=== PATIENT | female | born 2000 | race Caucasian/White ===

== ENCOUNTER → 2022-09-12 | Outpatient (CLI) | payer OTHER ==
--- NOTE | 2022-09-12 11:29 | US ---
EXAMINATION TYPE: Transabdominal DATE OF EXAM: 09/12/2022 11:07 AM COMPARISON: NONE CLINICAL HISTORY: O26.851 SPOTTING COMPLICATED . Bleeding. . EXAM PERFORMED: Transvaginal (TV) and Transabdominal (TA) EXAM MEASUREMENTS: GESTATIONAL AGE / DATING Physician Established: (11 weeks/5 days) EDC: 03/29/2023 Dates by LMP: (12 weeks/1 day) EDC: 03/26/2023 Dates by First Scan: This is first scan Dates by Current Scan for: (9 weeks/2 days by gestational sac, 6 weeks/ 5 days by possible CRL, no he art tones seen at this time.) MATERNAL ANATOMY Uterus: 8.7 x 6.2 x 6.5 cm. Anteverted. Fluid seen in cervix: 1.7 x 0.7 x 0.2 cm. Right Ovary: 3.7 x 2.2 x 2.1 cm. Complex area seen: 2.2 x 1.9 x 1.9 cm. Left Ovary: 2.8 x 1.7 x 1.6 cm. Appears wnl Post CDS / Adnexa: Appears wnl. Presence of free fluid: No Presence of corpus luteal cyst: Possible within right ovary, complex area seen: 2.2 x 1.9 x 1.9 cm. Presence of subchorionic bleed: Yes: 1.1 x 1.6 x 0.5 cm. GESTATION / SURVEY CRL: Possible pole seen without heart tones (6 weeks/5 days) MSD: 3.67 cm (9 weeks/2 days) Yolk Sac (normal less than 6mm): Not seen Heart Rate: Not detected IUP: Possible pole seen without heart tones seen. Date of LMP: 06/19/2022 IMPRESSION: 1. Discrepancy between dating by crown-rump length, mean sac diameter, and last menstrual period. No heart tones are identified. Intrauterine demise. 2. Subchorionic hemorrhage.
== END | disposition home or self-care (01) ==
LOC: RADUSWWP 10:12
PROVIDERS: ATTEND Obstetrics & Gynecology
DX: O26.851 Spotting complicating pregnancy, first trimester (principal); O20.8 Other hemorrhage in early pregnancy; Z3A.09 9 weeks gestation of pregnancy
CPT/HCPCS: 76801; 76817

== ENCOUNTER 2022-10-13 05:43 | Emergency (ER) | payer OTHER ==
[2022-10-13 05:56] VITALS: TEMP 98
--- NOTE | 2022-10-13 06:25 | ED ---
Female Urogenital HPI - General Chief complaint: Vaginal Bleeding Stated complaint: Vaginal Bleeding Time Seen by Provider: 10/13/22 06:01 Source: patient, RN notes reviewed Mode of arrival: ambulatory Limitations: no limitations - History of Present Illness Initial comments: 22-year-old female presents emergency Department chief complaint of ongoing vag inal bleeding. Patient states that she was diagnosed with a miscarriage on 2and ultrasound. Patient's FISHING BOAT MATE is Dr. Gallego. Patient states that she initially had her follow-up appointment in which she was having bleeding was told that should subside and she would have a period within 40 to weeks. Patient states that she's never stopped bleeding she states she is still going to 5-6 pads a day states that she still passing some clots signs of a time. Patient states she is lightheaded when she stands up she states she has no syncopal episodes and states that she didn't have a syncopal episode just before [place]. Patient states she has mild lower abdominal cramping. Patient denies any chest pain shortness of breath. Last Menstrual Period: 06/19/22 - Related Data Home Medications Medication Instructions Recorded Confirmed Ondansetron Odt [Zofran Odt] 4 mg PO TID PRN 10/13/22 10/13/22 Allergies Allergy/AdvReac Type Severity Reaction Status Date / Time Sulfa (Sulfonamide Allergy Rash/Hives Verified 10/13/22 07:49 Antibiotics) sulfamethoxazole Allergy Rash/Hives Verified 10/13/22 07:49 [From Bactrim] trimethoprim [From Bactrim] Allergy Rash/Hives Verified 10/13/22 07:49 Review of Systems ROS Statement: Those systems with pertinent positive or pertinent negative responses have been documented in the HPI. ROS Other: All systems not noted in ROS Statement are negative. Past Medical History Past Medical History: No Reported History History of Any Multi-Drug Resistant Organisms: None Reported Past Surgical History: No Surgical Hx Reported Past Psychological History: No Psychological Hx Reported General Exam General appearance: alert, in no apparent distress Head exam: Present: atraumatic, normocephalic, normal inspection Neck exam: Present: normal inspection. Absent: tenderness, meningismus, lymphadenopathy Respiratory exam: Present: normal lung sounds bilaterally. Absent: respiratory distress, wheezes, rales, rhonchi, stridor Cardiovascular Exam: Present: regular rate, normal rhythm, normal heart sounds. Absent: systolic murmur, diastolic murmur, rubs, gallop, clicks GI/Abdominal exam: Present: soft, normal bowel sounds. Absent: distended, tenderness, guarding, rebound, rigid Neurological exam: Present: alert Skin exam: Present: warm, dry, intact, normal color. Absent: rash Course Vital Signs 10/13/22 10/13/22 10/13/22 05:48 06:12 06:20 Temperature 98 F Pulse Rate 74 Pulse Rate [ 66 59 L Construction Secretary ] Respiratory 18 Rate Blood Pressure 102/65 Blood Pressure 98/59 98/59 [Right Arm Sitting] Blood Pressure [Right Arm Standing] Blood Pressure 104/48 [Right Arm Supine] O2 Sat by Pulse 98 99 Oximetry 10/13/22 06:21 Temperature Pulse Rate Pulse Rate [ 90 Construction Secretary ] Respiratory Rate Blood Pressure Blood Pressure [Right Arm Sitting] Blood Pressure 100/63 [Right Arm Standing] Blood Pressure [Right Arm Supine] O2 Sat by Pulse 99 Oximetry Medical Decision Making - Medical Decision Making Was pt. sent in by a medical professional or institution? @ -no Did you speak to anyone other than the patient for history? @ -no Did you review nursing and triage notes? @ -Agree and reviewed Were old charts reviewed? @ -Reviewed ultrasound from 09-12-22 Differential Diagnosis? @ -Dysfunctional uterine bleeding, miscarriage, retained products, menorrhagia, EKG interpreted by me (3pts min.)? @ -no X-rays interpreted by me (1pt min.)? @ -no CT interpreted by me (1pt min.)? @ -no U/S interpreted by me (1pt. min.)? @ -Ultrasound transvaginal shows thickened endometrium, possible retained the products What testing was considered but not performed? (CT, X-rays, U/S, labs)? Why? @ none What meds were considered but not given? Why? @ -no Did you discuss the management of the patient with other professionals? @ -FISHING BOAT MATE Dr. Rico who came and evaluated the patient Did you reconcile home meds? @ -no Was smoking cessation discussed for >3mins.? @ -no Was critical care preformed (if so, how long)? @ -no Were there social determinants of health that impacted care today? How? (Homelessness, low income, unemployed, alcoholism, drug addiction, transportation, low edu. Level, literacy, decrease access to med. care, long term, rehab)? @ -no Was there de-escalation of care discussed even if they declined? (Discuss DNR or withdrawal of care, Hospice)? @ -no What co-morbidities impacted this encounter? (DM, HTN, Smoking, COPD, CAD, Cancer, CVA, Hep., AIDS, mental health diagnosis, sleep apnea, morbid obesity)? @ -no Was patient admitted / discharged? @ -Discharged with follow up outpatient Undiagnosed new problem with uncertain prognosis? @ -no Drug Therapy requiring intensive monitoring for toxicity (Heparin, Nitro, I nsulin, Cardizem)? @ -no Were any procedures done? @ -no Diagnosis/symptom? @ -Menorrhagia Acute, or Chronic, or Acute on Chronic? @ -acute Uncomplicated (without systemic symptoms) or Complicated (systemic symptoms)? @ -Uncomplicated Side effects of treatment? @ -no Exacerbation, Progression, or Severe Exacerbation] @ -no Poses a threat to life or bodily function? @ -no 21-year-old female presented for vaginal bleeding after miscarriage. Patient's been having ongoing bleeding for one month. Patient was evaluated emergency department by patient's beta Quant is less than 2.4. This is felt to be related to heavy vaginal bleeding and not retained products. Patient is to follow up outpatient. - Lab Data Result diagrams: 10/13/22 06:09 10/13/22 06:09 Lab Results 10/13/22 10/13/22 10/13/22 Range/Units 06:00 06:05 06:09 WBC 5.9 (3.8-10.6) k/uL RBC 4.39 (3.80-5.40) m/uL Hgb 13.9 (11.4-16.0) gm/dL Hct 41.2 (34.0-46.0) % MCV 93.7 (80.0-100.0) fL MCH 31.5 (25.0-35.0) pg MCHC 33.7 (31.0-37.0) g/dL RDW 11.9 (11.5-15.5) % Plt Count 230 (150-450) k/uL MPV 8.2 Neutrophils % 61 % Lymphocytes % 28 % Monocytes % 6 % Eosinophils % 2 % Basophils % 0 % Neutrophils # 3.6 (1.3-7.7) k/uL Lymphocytes # 1.7 (1.0-4.8) k/uL Monocytes # 0.3 (0-1.0) k/uL Eosinophils # 0.1 (0-0.7) k/uL Basophils # 0.0 (0-0.2) k/uL Sodium (137-145) mmol/L Potassium (3.5-5.1) mmol/L Chloride (98-107) mmol/L Carbon Dioxide (22-30) mmol/L Anion Gap mmol/L BUN (7-17) mg/dL Creatinine (0.52-1.04) mg/dL Est GFR (CKD-EPI)AfAm (>60 ml/min/1.73 sqM) Est GFR (CKD-EPI)NonAf (>60 ml/min/1.73 sqM) Glucose (74-99) mg/dL Calcium (8.4-10.2) mg/dL Total Bilirubin (0.2-1.3) mg/dL AST (14-36) U/L ALT (4-34) U/L Alkaline Phosphatase (38-126) U/L Total Protein (6.3-8.2) g/dL Albumin (3.5-5.0) g/dL HCG, Quant mIU/mL Blood Type A Positive Blood Type Confirm A Positive Blood Type Recheck No Previous Record Bld Type Recheck Status CABO Indicated Antibody Screen NEGATIVE Spec Expiration Date 10/16/2022 - 230810/13/22 Range/Units 06:09 WBC (3.8-10.6) k/uL RBC (3.80-5.40) m/uL Hgb (11.4-16.0) gm/dL Hct (34.0-46.0) % MCV (80.0-100.0) fL MCH (25.0-35.0) pg MCHC (31.0-37.0) g/dL RDW (11.5-15.5) % Plt Count (150-450) k/uL MPV Neutrophils % % Lymphocytes % % Monocytes % % Eosinophils % % Basophils % % Neutrophils # (1.3-7.7) k/uL Lymphocytes # (1.0-4.8) k/uL Monocytes # (0-1.0) k/uL Eosinophils # (0-0.7) k/uL Basophils # (0-0.2) k/uL Sodium 140 (137-145) mmol/L Potassium 4.3 (3.5-5.1) mmol/L Chloride 109 H (98-107) mmol/L Carbon Dioxide 25 (22-30) mmol/L Anion Gap 6 mmol/L BUN 7 (7-17) mg/dL Creatinine 0.61 (0.52-1.04) mg/dL Est GFR (CKD-EPI)AfAm >90 (>60 ml/min/1.73 sqM) Est GFR (CKD-EPI)NonAf >90 (>60 ml/min/1.73 sqM) Glucose 104 H (74-99) mg/dL Calcium 8.5 (8.4-10.2) mg/dL Total Bilirubin 0.8 (0.2-1.3) mg/dL AST 22 (14-36) U/L ALT 14 (4-34) U/L Alkaline Phosphatase 44 (38-126) U/L Total Protein 6.4 (6.3-8.2) g/dL Albumin 4.1 (3.5-5.0) g/dL HCG, Quant <2.4 mIU/mL Blood Type Blood Type Confirm Blood Type Recheck Bld Type Recheck Status Antibody Screen Spec Expiration Date Disposition Clinical Impression: Menorrhagia Disposition: HOME SELF-CARE Condition: Stable Instructions (If sedation given, give patient instructions): Menorrhagia (ED) Additional Instructions: Please return to the Emergency Department if symptoms worsen or any other concerns. Is patient prescribed a controlled substance at d/c from ED?: No Referrals: Richi Farris MD [Primary Care Provider] - 1-2 days Aiyana Gallego MD [STAFF PHYSICIAN] - 1-2 days Time of Disposition: 08:27
[2022-10-13 07:05] LABS: Basophils % (A) 0 %; Eosinophils # (A) 0.1 k/uL (0-0.7); Eosinophils % (A) 2 %; HCT 41.2 % (34.0-46.0); HGB 13.9 gm/dL (11.4-16.0); Lymphocytes # (A) 1.7 k/uL (1.0-4.8); Lymphocytes % (A) 28 %; MCH 31.5 pg (25.0-35.0); MCHC 33.7 g/dL (31.0-37.0); MCV 93.7 fL (80.0-100.0); Mean Platelet Volume 8.2; Monocytes # (A) 0.3 k/uL (0-1.0); Monocytes % (A) 6 %; Neutrophils # (A) 3.6 k/uL (1.3-7.7); Neutrophils % (A) 61 %; Platelet Count 230 k/uL (150-450); RBC 4.39 m/uL (3.80-5.40); RDW 11.9 % (11.5-15.5); WBC 5.9 k/uL (3.8-10.6)
[2022-10-13 07:22] LABS: ALT 14 U/L (4-34); African American GFR (CKD) >90 (>60 ml/min/1.73 sqM); Albumin 4.1 g/dL (3.5-5.0); Anion Gap 6 mmol/L; Blood Urea Nitrogen 7 mg/dL (7-17); Calcium 8.5 mg/dL (8.4-10.2); Carbon Dioxide 25 mmol/L (22-30); Chloride 109 mmol/L (98-107); Glucose 104 mg/dL (74-99); Non-African American GFR(CKD) >90 (>60 ml/min/1.73 sqM); Sodium 140 mmol/L (137-145); Total Bilirubin 0.8 mg/dL (0.2-1.3); Total Protein 6.4 g/dL (6.3-8.2)
[2022-10-13 07:25] LABS: AST 22 U/L (14-36); Alkaline Phosphatase 44 U/L (38-126); Potassium 4.3 mmol/L (3.5-5.1)
[2022-10-13 07:38] LABS: HCG,Quantitative Serum <2.4 mIU/mL
--- NOTE | 2022-10-13 07:51 | US ---
EXAMINATION TYPE: US transvaginal. Plus Dopplers DATE OF EXAM: 10/13/2022 COMPARISON: NONE CLINICAL HISTORY: 22-year-old female recent Miscarriage, increased bleeding. Bleeding since spontaneo us AB 1 month ago, no pain, no fever TECHNIQUE: TV. Transvaginal sonographic images. Color Doppler and spectral waveform analysis of the ovarian arteries and veins. Date of LMP: unknown EXAM MEASUREMENTS: Uterus: 8.2 x 4.5 x 3.7 cm Endometrial Stripe: 1.8 cm Right Ovary: 2.9 x 2.2 x 1.5 cm Left Ovary: 2.9 x 2.0 x 1.8 cm 1. Uterus: Anteverted; wnl 2. Endometrium: focal area of hypervascularity with associated thickening and heterogeneity suggesti ve of retained products 3. Right Ovary: 0.9 x 0.9 x 0.8cm hypoechoic cyst, possible corpus luteum or small hemorrhagic folli siva. 4. Left Ovary: wnl Spectral, color and waveform doppler imaging shows good arterial and venous flow within the ovaries ; there is no evidence for ovarian torsion. 5. Bilateral Adnexa: wnl 6. Posterior cul-de-sac: wnl IMPRESSION: Focal area of heterogeneous thickening measuring up to 1.8 cm along the endometrium. There is associa alice vascularity. Findings suggest retained products of conception. Findings called to Dr. Rico in e OR at 7:45 AM.
--- NOTE | 2022-10-13 08:40 | P.OBCN ---
History of Present Illness Consult date: 10/13/22 Reason for consult: menorrhagia Chief complaint: Vaginal bleeding History of present illness: This is a 22-year-old female 1 para 0010 who was treated with Cytotec for a miscarriage earlier in the month. She states that she has been having heavy vaginal bleeding and presents to the emergency room for evaluation. Ultrasound suggests thickened endometrium, however hemoglobin is 13.9, beta less than 2.4, blood pressure 100/63, pulse 80, 99% O2 saturation. After discussion with the patient, it is my impression that she is having a heavy menses status post-spontaneous miscarriage. Past medical history is essentially negative. Past surgical history negative EGD, left inguinal herniorrhaphy 2. ALLERGIES Bactrim and sulfa to both of which she reports hives and rash. Current medications Zofran as needed, vitamin daily. Social history patient is single, she works for [employer] in [place], marijuana socially, last used yesterday. She denies tobacco alcohol or other drug use. On exam patient is 5 foot 6 inches, 116 pounds, pulse 90, blood pressure 100/63, 99% O2 saturation. HEENT exam is negative. Chest is clear in all corley. Cardiac exam reveals regular rate and rhythm. Abdomen is soft, no rebound or guarding. No CVA tenderness. Extremities are negative for edema. There is a small to moderate amount of blood in the vault. No active bleeding or blood clot passage. As noted beta is less than 2.4, hemoglobin 13.9. Ultrasound does suggest thickened endometrium, adnexa negative bilaterally. Impression: Concern for increased vaginal bleeding, status post miscarriage one month ago. Patient is stable metabolically and clinically. Suspect heavy menses with negative beta level. Plan: I am recommending she continue her vitamin daily. She will call and follow up with her primary sheet metal welder, Dr. Gallego, within the next week. Call with any lightheadedness or dizziness, increased vaginal bleeding, or any other concerns or issues. Past Medical History Past Medical History: No Reported History History of Any Multi-Drug Resistant Organisms: None Reported Past Surgical History: No Surgical Hx Reported Past Psychological History: No Psychological Hx Reported Medications and Allergies Home Medications Medication Instructions Recorded Confirmed Type Ondansetron Odt [Zofran Odt] 4 mg PO TID PRN 10/13/22 10/13/22 History Allergies Allergy/AdvReac Type Severity Reaction Status Date / Time Sulfa (Sulfonamide Allergy Rash/Hives Verified 10/13/22 07:49 Antibiotics) sulfamethoxazole Allergy Rash/Hives Verified 10/13/22 07:49 [From Bactrim] trimethoprim [From Bactrim] Allergy Rash/Hives Verified 10/13/22 07:49 Exam Vital Signs Temp Pulse Pulse Resp BP BP BP 10/13/22 06:21 90 100/63 10/13/22 06:20 59 L 98/59 10/13/22 06:12 66 98/59 10/13/22 05:48 98 F 74 18 102/65 BP Pulse Ox 10/13/22 06:21 99 10/13/22 06:20 10/13/22 06:12 104/48 99 10/13/22 05:48 98 Intake and Output 10/12/22 10/13/22 10/13/22 22:59 06:59 14:59 Other: Weight 52.617 kg See dictation under HPI please Results Result Diagrams: 10/13/22 06:09 10/13/22 06:09 Abnormal Lab Results - Last 24 Hours (Table) 10/13/22 Range/Units 06:09 Chloride 109 H (98-107) mmol/L Glucose 104 H (74-99) mg/dL Assessment and Plan Assessment: Status post spontaneous miscarriage, negative beta hCG, suspect heavy menses. Metabolically and clinically stable. Plan: I have discussed with the patient and her partner Abdiel the option of D&C. We've reviewed the risks benefits and alternatives. Because she is clinically stable, and because I suspect this is a heavy menses following miscarriage, she is electing to proceed conservatively. She will continue her vitamin daily. Clean pad as needed. Follow up with her primary sheet metal welder Dr. Gallego within the week. She is given a note to excuse her from her working duties today. Time with Patient: Less than 30
[2022-10-13 09:06] VITALS: BP 97/51; PULSE 54; RESP 15
== END 2022-10-13 09:05 | disposition home or self-care (01) ==
LOC: EC 05:43
DX: N92.0 Excessive and frequent menstruation with regular cycle (principal); Z88.2 Allergy status to sulfonamides
CPT/HCPCS: 36415; 76830; 80053; 84702; 85025; 86850; 86900; 86901; 93975; 99285

== ENCOUNTER → 2023-09-28 | Outpatient (CLI) | payer OTHER ==
--- NOTE | 2023-09-28 08:28 | USB ---
Reason for Exam: Clinical finding. Technique: Method: Targeted. Findings: The axilla of the right breast and the retroareolar of the right breast were scanned. At the level of the palpable region there is a 0.5 cm x 1.5 x 0.5 cm lymph node. No thickened cortex is evident. This area correlates with the palpable abnormality in the right axilla. Overall Assessment: Benign, BI-RAD 2 Management: Screening Mammogram of both breasts at age 39. A clinical breast exam by your physician is recommended on an annual basis and results should be correlated with mammographic findings. This exam should not preclude additional follow-up of suspicious palpable abnormalities. Results were given to the patient verbally at the time of exam. Electronically signed and approved by: Deepak Urbano D.O. Radiologis
== END | disposition home or self-care (01) ==
LOC: RADUSWWP 07:57
PROVIDERS: ATTEND Obstetrics & Gynecology
DX: R68.89 Other general symptoms and signs (principal)

== ENCOUNTER 2024-03-24 13:08 | Inpatient (IN) | payer BC, OTHER ==
[2024-03-24] MEDS ORDERED: OXYTOCIN 10 UNIT/ML 1 ML VIAL IM PRN (14:03)
[2024-03-24] MEDS ORDERED: TRANEXAMIC 1,000 MG/100ML-NACL 1,000 MG in EMPTY BAG 1 BAG IV PRN (14:03)
[2024-03-24] MEDS ORDERED: CARBOPROST TROMETHAMINE 250 MCG/ML 1 ML AMP IM PRN (14:03)
[2024-03-24] MEDS ORDERED: miSOPROStoL 200 MCG TAB PO PRN (14:03)
[2024-03-24] MEDS ORDERED: LIDOCAINE 0.5% (PF) 5 MG/ML (50 ML SDV) SQ PRN (14:03)
[2024-03-24] MEDS ORDERED: TERBUTALINE 1 MG/ML VIAL SQ PRN (14:03)
[2024-03-24] MEDS ORDERED: METHYLERGONOVINE 0.2 MG/ML 1 ML AMP IM PRN (14:03)
[2024-03-24] MEDS: LACTATED RINGERS 1,000 ML IV SCH (14:30)
[2024-03-24 15:24] LABS: HGB 11.2 gm/dL (11.4-16.0); MCH 31.6 pg (25.0-35.0); MCHC 32.8 g/dL (31.0-37.0); MCV 96.3 fL (80.0-100.0); Mean Platelet Volume 10.5; Platelet Count 156 k/uL (150-450); RBC 3.54 m/uL (3.80-5.40); RDW 13.2 % (11.5-15.5); WBC 7.2 k/uL (3.8-10.6)
[2024-03-24] MEDS: PENICILLIN G POTASSIUM 5,000,000 UNIT in DEXTROSE 5% IN WATER 100 ML IVPB STA (15:30)
[2024-03-24] MEDS: OXYTOCIN 30 UNITS/500 ML NS 30 UNIT in SALINE 1 500ML.BAG IV SCH (16:25)
--- NOTE | 2024-03-24 16:35 | P.HPOB ---
History of Present Illness Chief Complaint: Spontaneous rupture of membranes This is a 23-year-old 2 para 0010 woman with an estimated due date of 03/31/2024 based on LMP consistent with first trimester ultrasound. She presented with spontaneous rupture of membranes at approximately 11 AM. She was on evaluated in labor and delivery triage and rupture of membranes was confirmed. She is not regularly shanice. Her has been uncomplicated But she is known group B strep positive. Upon initial evaluation in labor and delivery triage she was 3 cm dilated and posterior. Laboratory data: Blood type A+, antibody screen negative, rubella immune, VDRL nonreactive, hepatitis Kalani surface antigen negative, HIV negative, hepatitis C negative, gonorrhea and clinic cultures negative, HIV negative, group B strep positive, maternity 21 screening negative, glucose tolerance testing within normal limits. , father of the baby is involved, negative for tobacco alcohol and drug use. Past medical history:Anxiety and depression. Past VAULT CUSTODIAN history first trimester miscarriage, medical management in 2021. Social historyShe is single, father of the baby involved, negative for tobacco, drug use Family history: Noncontributory Review of Systems All systems: negative Past Medical History Past Medical History: No Reported History History of Any Multi-Drug Resistant Organisms: None Reported Past Surgical History: No Surgical Hx Reported Smoking Status: Never smoker Medications and Allergies Home Medications Medication Instructions Recorded Confirmed Type Omeprazole [PriLOSEC] 20 mg PO AC-BID 03/24/24 03/24/24 History Allergies Allergy/AdvReac Type Severity Reaction Status Date / Time Sulfa (Sulfonamide Allergy Rash/Hives Verified 03/24/24 13:25 Antibiotics) sulfamethoxazole Allergy Rash/Hives Verified 03/24/24 13:25 [From Bactrim] trimethoprim [From Bactrim] Allergy Rash/Hives Verified 03/24/24 13:25 Exam Vital Signs Temp Pulse Resp BP Pulse Ox 03/24/24 13:22 97.6 F 97 16 122/63 98 Intake and Output 03/24/24 03/24/24 03/24/24 06:59 14:59 22:59 Other: Weight 73.482 kg Targeted physical exam is performed. This is a comfortable appear. This is a comfortable appearing female who is visibly gravid. On pelvic examination the cervix is 4+ centimeters dilated, 80% effaced and the vertex is in the -2 station. Clear fluid is noted. heart tones are category 1. She is very irregularly shanice. Results Result Diagrams: 03/24/24 15:00 Abnormal Lab Results - Last 24 Hours (Table) 03/24/24 Range/Units 15:00 RBC 3.54 L (3.80-5.40) m/uL Hgb 11.2 L (11.4-16.0) gm/dL Assessment and Plan (1) 39 weeks gestation of Current Visit: Yes Status: Acute Code(s): Z3A.39 - 39 WEEKS GESTATION OF SNOMED Code(s): 32297628 (2) Spontaneous rupture of membranes Current Visit: Yes Status: Acute Code(s): OBO1688 - SNOMED Code(s): 522111079 (3) GBS (group B Streptococcus carrier), +RV culture, currently Current Visit: Yes Status: Acute Code(s): O99.820 - STREPTOCOCCUS B CARRIER STATE COMPLICATING SNOMED Code(s): 9734606322218 Plan: [id number] 2 para 0 woman admitted at 39 weeks gestation with spontaneous rupture of membranes not in active labor. Group B strep prophylactic antibiotics have been initiated. The patient does have a plan however with counseling does agree to Pitocin augmentation of labor. Risks and benefits were reviewed. Analgesia options were discussed in detail. status is currently reassuring by external monitoring. I anticipate normal spontaneous vaginal delivery.
[2024-03-24 16:53] LABS: Eosinophils # (M) 0.07 k/uL (0-0.7); Monocytes # (M) 1.15 k/uL (0-1.0); Neutrophils # (M) 4.68 k/uL (1.3-7.7); Neutrophils % (M) 65 %; Nucleated Red Blood Cells 0 /100 WBC (0-0); Total Cells Counted 100
[2024-03-24] MEDS: PENICILLIN G POTASSIUM 2,500,000 UNIT in DEXTROSE 5% IN WATER 100 ML IVPB SCH (19:29)
[2024-03-24] MEDS ORDERED: ROPIVACAINE 5 MG/ML 30 ML VIAL ONE (23:06)
[2024-03-24] MEDS ORDERED: fentaNYL (PF) 50 MCG/ML 5 ML AMP ONE (23:06)
[2024-03-24] MEDS ORDERED: SODIUM CHLORIDE 0.9% 250 ML BAG ONE (23:06)
[2024-03-25] MEDS: ONDANSETRON 4 MG/2 ML VIAL IVP PRN (05:33)
[2024-03-25] MEDS: CITRIC ACID-SODIUM CITRATE 15 ML CUP PO ONE (08:20)
[2024-03-25] MEDS ORDERED: OXYTOCIN 10 UNIT/ML 1 ML VIAL IM PRN (08:23)
[2024-03-25] MEDS ORDERED: METHYLERGONOVINE 0.2 MG/ML 1 ML AMP IM PRN (08:23)
[2024-03-25] MEDS ORDERED: TRANEXAMIC 1,000 MG/100ML-NACL 1,000 MG in EMPTY BAG 1 BAG IV PRN (08:23)
[2024-03-25] MEDS ORDERED: miSOPROStoL 200 MCG TAB PO PRN (08:23)
[2024-03-25] MEDS ORDERED: ONDANSETRON 4 MG/2 ML VIAL ONE (08:38)
[2024-03-25] MEDS ORDERED: OXYTOCIN 30 UNITS/500 ML NS BAG IV ONE (08:38)
[2024-03-25] MEDS ORDERED: NALBUPHINE 10 MG/ML (10 ML MDV) ONE (08:38)
[2024-03-25] MEDS ORDERED: MORPHINE SULFATE (PF) 0.3 MG/0.3 ML SYR ONE (08:38)
[2024-03-25] MEDS ORDERED: NALOXONE 0.4 MG/ML 1 ML VIAL IV PRN ×2 (09:05→09:25)
[2024-03-25] MEDS ORDERED: METOCLOPRAMIDE 5 MG/ML 2 ML VIAL IVP PRN (09:25)
[2024-03-25] MEDS ORDERED: ONDANSETRON 4 MG/2 ML VIAL IVP PRN (09:25)
[2024-03-25] MEDS ORDERED: ZOLPIDEM 5 MG TAB PO PRN (09:25)
[2024-03-25] MEDS ORDERED: diphenhydrAMINE 50 MG/ML 1 ML VIAL IVP PRN ×2 (09:25)
[2024-03-25] MEDS ORDERED: diphenhydrAMINE 50 MG CAP PO PRN (09:25)
[2024-03-25] MEDS ORDERED: diphenhydrAMINE 25 MG CAP PO PRN (09:25)
--- NOTE | 2024-03-25 09:25 | P.OP ---
Date of Procedure: 03/25/24 Preoperative Diagnosis: Intrauterine at 39 weeks gestation Spontaneous rupture of membranes Group B strep positive Arrest of descent and dilatation Suspected asynclitism Vaginal bleeding Postoperative Diagnosis: Intrauterine at 39 weeks gestation Spontaneous rupture of membranes Group B strep positive Arrestive descent dose dilatation Occiput posterior asynclitic Vaginal bleeding Procedure(s) Performed: Primary low transverse section Anesthesia: spinal Surgeon: Aiyana Gallego Miner Assistant #1: Qing Simental Estimated Blood Loss (ml): 290 IV fluids (ml): 600 Urine output (ml): 50 Pathology: none sent Condition: stable Disposition: floor Indications for Procedure: This is a 23-year-old 2 para 0010 woman who presented with spontaneous rupture of membranes at 11 AM on 03/24/2024. She was not in active labor. On admission she was 3 cm dilated. She did progress to 4+ centimeters dilated and Pitocin augmentation was initiated. She progressed to 5 cm dilated and received an epidural anesthetic at approximately 11 PM. Despite adequate Pitocin titration contraction pattern by 7 AM she remained 7 cm dilated. On examination the occiput posterior was susp ected. She began to have some moderate dark red vaginal bleeding with small clots. status was reassuring with category 1 heart tones however the patient was cohselined concerns for arrest of descent and dilatation likely secondary to occiput posterior position Possible evolving early placental abruption.Shared will decision making was undertaken and all questions were answered. The patient elected to proceed at this time to primary low transverse section. Risks of the procedure including bleeding, transfusion, infection, injury to bowel, bladder, ureters and/or other maternal or structures was reviewed. Consent was obtained. The anesthesiology team was contacted and her epidural was bolused. Operative Findings: Male in the occiput posterior asynclitic position with Apgars of 8 at 1 minute and 9 at 5 minutes weighing 6 lbs. 12 oz., 3070 g. Normal-appearing uterus bilateral fallopian tubes and ovaries. There was dark clot encountered upon entering the the uterus consistent with an evolving abruption. The placenta wAs Calcified and with adherent clot. Description of Procedure: After the patient was met preoperatively and all questions were answered, she was taken to the operating room where spinal anesthetic was administered without incident. She was then positioned, prepped and draped in the dorsal supine position with a leftward tilt. Mendoza catheter was placed. After anesthetic was confirmed adequate, a low transverse skin incision was made following the pre- existing scar. This was carried down to the underlying fascia both sharply and with the electrocautery. The fascia was then incised in the midline and extended bilaterally with the Magallanes scissors. The superior aspect of the fascial incision was elevated and the underlying rectus muscles dissected off sharply and with the electrocautery. The inferior aspect of the fascial incision was also elevated and the underlying rectus muscles dissected off sharply. The muscles were adherent in the midline. These were bluntly and the peritoneum was tented up with hemostats. The peritoneum was entered sharply wi th the Metzenbaum scissors. The peritoneal incision was extended inferiorly and superiorly with good visualization of the bladder. The bladder blade was placed. The vesicouterine peritoneum was identified, tented up and entered sharply, the bladder flap was created both sharply and digitally. A low transverse uterine incision was then made sharply and carried down to the underlying amniotic membranes. Small dark clots were encountered. Membranes were ruptured and clear fluid was noted. The uterine incision was extended bilaterally bluntly. The infant's head was delivered from the incision without difficulty Family occiput posterior asynclitic position. The nose and mouth were bulb suctioned. The rest of the was delivered onto the field without difficulty. And cut and the was taken to the warmer. An intact, three-vessel cord placenta was then manually removed and the uterus was exteriorized. The uterus was cleared of all clot and debris. The uterine incision was delineated with Singh clamps. The uterine incision was then closed in a running locked fashion with 0 Vicryl suture. This was followed with a second imbricating layer. Additional [id number] sutures were placed where necessary along the incision for hemostasis. The uterus was then returned to the abdomen and the gutters were cleared of all clot and debris. The uterine incision was reinspected and Bovie electrocautery was utilized were necessary for hemostasis. The fascial edges, peritoneal edges and rectus muscles were inspected and Bovie electrocautery utilized were necessary for hemostasis. The fascia was then closed in a running fashion with 0 Vicryl suture. The subcuticular tissue was copiously suction irrigated and Bovie electrocautery utilized were necessary for hemostasis. 3-0 Vicryl suture was utilized to reapproximate the subcuticular tissue. The skin was then closed in a subcutaneous fashion with 4-0 Vicryl suture. All counts reported to me as correct by the operating room staff at the end of the procedure. The patient received antibiotics preoperatively and Pitocin following cord clamp. Mother and infant were both transported from the room in stable condition.
[2024-03-25] MEDS ORDERED: HYDROmorphone 2 MG TAB PO PRN (09:26)
[2024-03-25] MEDS ORDERED: LACTATED RINGERS 1,000 ML IV SCH (09:30)
[2024-03-25] MEDS ORDERED: KETOROLAC 15 MG/ML 1 ML VIAL ONE (09:30)
[2024-03-25 12:40] LABS: Basophils % (A) 0 %; Eosinophils % (A) 0 %; HCT 30.3 % (34.0-46.0); HGB 10.2 gm/dL (11.4-16.0); Lymphocytes # (A) 1.3 k/uL (1.0-4.8); Lymphocytes % (A) 12 %; MCH 32.1 pg (25.0-35.0); MCHC 33.7 g/dL (31.0-37.0); MCV 95.2 fL (80.0-100.0); Mean Platelet Volume 10.9; Monocytes # (A) 0.6 k/uL (0-1.0); Monocytes % (A) 5 %; Neutrophils # (A) 8.3 k/uL (1.3-7.7); Neutrophils % (A) 79 %; Platelet Count 129 k/uL (150-450); RBC 3.18 m/uL (3.80-5.40); RDW 13.6 % (11.5-15.5); WBC 10.5 k/uL (3.8-10.6)
[2024-03-25] MEDS: ACETAMINOPHEN TAB 500 MG TAB PO SCH (13:37)
[2024-03-25] MEDS: IBUPROFEN 600 MG TAB PO SCH (16:42)
[2024-03-25] MEDS: SENNOSIDES-DOCUSATE SODIUM 1 EACH TAB PO SCH (21:18)
[2024-03-25] MEDS: IBUPROFEN IV 800 MG in SODIUM CHLORIDE 0.9% 250 ML IV SCH (21:18)
[2024-03-26] MEDS: SIMETHICONE 80 MG CHEWABLE PO PRN (05:08)
[2024-03-26 06:16] LABS: Basophils % (A) 0 %; Eosinophils % (A) 0 %; HCT 30.5 % (34.0-46.0); HGB 9.8 gm/dL (11.4-16.0); Lymphocytes # (A) 1.6 k/uL (1.0-4.8); Lymphocytes % (A) 12 %; MCH 31.3 pg (25.0-35.0); MCHC 32.2 g/dL (31.0-37.0); MCV 97.1 fL (80.0-100.0); Mean Platelet Volume 10.7; Monocytes # (A) 0.8 k/uL (0-1.0); Monocytes % (A) 6 %; Neutrophils # (A) 9.9 k/uL (1.3-7.7); Neutrophils % (A) 77 %; Platelet Count 154 k/uL (150-450); RBC 3.14 m/uL (3.80-5.40); RDW 13.8 % (11.5-15.5); WBC 12.8 k/uL (3.8-10.6)
--- NOTE | 2024-03-26 11:27 | P.PNOBGPC ---
Subjective - Subjective Principal diagnosis: Status post primary low transverse postop day 1 Interval history: Seen and examined. Denies nausea, vomiting, chest pain, shortness of breath or calf pain. Tolerating a regular diet and did have a bowel movement. Patient reports: Reports appetite normal, Reports voiding normally, Reports pain well controlled, Reports ambulating normally : doing well Objective - Vital Signs Latest vital signs: Vital Signs Temp Pulse Resp BP Pulse Ox 03/26/24 08:00 98.5 F 86 18 125/77 98 03/26/24 04:00 97.7 F 84 16 118/70 96 03/25/24 23:08 98.8 F 82 16 108/67 97 03/25/24 22:00 16 97 03/25/24 20:00 98.8 F 91 16 111/65 99 03/25/24 18:00 16 98 03/25/24 16:00 16 03/25/24 14:05 98 03/25/24 14:00 16 98 Intake and Output 03/25/24 03/26/24 03/26/24 22:59 06:59 14:59 Output Total 1400 650 200 Balance -1400 -650 -200 Output: Urine 1400 650 200 Uretheral (Mendoza) 800 Other: # Voids 1 1 # Bowel Movements 2 - Exam Lungs: bilateral: normal Chest: Normal S1, Normal S2 Extremities: Present: normal Abdomen: Present: normal appearance, soft. Absent: distention, tenderness Incision: Present: normal, dry, intact Uterus: Present: normal, firm - Labs Labs: Abnormal Lab Results - Last 24 Hours (Table) 03/25/24 03/26/24 Range/Units 12:20 05:56 WBC 12.8 H (3.8-10.6) k/uL RBC 3.18 L 3.14 L (3.80-5.40) m/uL Hgb 10.2 L 9.8 L (11.4-16.0) gm/dL Hct 30.3 L 30.5 L (34.0-46.0) % Plt Count 129 L (150-450) k/uL Neutrophils # 8.3 H 9.9 H (1.3-7.7) k/uL Assessment and Plan (1) Status post primary low transverse section Current Visit: Yes Status: Acute Code(s): Z98.891 - HISTORY OF UTERINE SCAR FROM PREVIOUS SURGERY SNOMED Code(s): 286425553 Plan: . Increase ambulation 2. Regular diet
--- NOTE | 2024-03-26 16:00 | P.PN ---
Progress Note - Text 03/26/24 747am 23-year-old female status post with spinal Duramorph. Patient seen and evaluated for postop pain control, she has a VAS of 1 with no complaints of nausea vomiting or pruritus
[2024-03-26 23:45] VITALS: RESP 16
[2024-03-27 10:11] VITALS: BP 114/68; PULSE 97; TEMP 99
--- NOTE | 2024-03-27 10:43 | P.DS ---
Providers Date of admission: 03/24/24 13:45 Expected date of discharge: 03/27/24 Attending physician: Aiyana Gallego Primary care physician: Stated None - Discharge Diagnosis(es) (1) Status post primary low transverse section Current Visit: Yes Status: Acute Hospital Course: patient underwent section postoperative course was uneventful. She denies nausea, vomiting, chest pain, shortness breath or calf pain. Her incision is clean, dry, intact. Patient will be discharged home postoperative day #2 in stable condition to follow-up with Dr. Gallego in 2 weeks. Plan - Discharge Summary New Discharge Prescriptions: No Action Omeprazole [PriLOSEC] 20 mg PO AC-BID Discharge Medication List Omeprazole [PriLOSEC] 20 mg PO AC-BID 03/24/24 [History] Follow up Appointment(s)/Referral(s): Aiyana Gallego MD [STAFF PHYSICIAN] - 05/05/24 1:45 pm (Post C/S Appointement 04-07-2024 at 1:00pm) Discharge Disposition: HOME SELF-CARE
== END 2024-03-27 13:55 | disposition home or self-care (01) | DRG 788 ==
LOC: FBPOP 13:08 → 4FBP 13:45
PROVIDERS: ADMIT Obstetrics & Gynecology; ATTEND Obstetrics & Gynecology
PROC: 10D00Z1 Extraction of Products of Conception, Low, Open Approach (ICD-10-PCS; principal; 2024-03-24)
DX: O99.824 Streptococcus B carrier state complicating childbirth (principal); O62.1 Secondary uterine inertia; O45.93 Premature separation of placenta, unspecified, third trimester; Z37.0 Single live birth; Z3A.39 39 weeks gestation of pregnancy; Z88.2 Allergy status to sulfonamides
CPT/HCPCS: 59025; 85025; 86850; 86900; 86901; 99213